=== PATIENT | male | born 1995 | race Caucasian/White ===

== ENCOUNTER 2024-01-07 18:17 | Emergency (ER) | payer BC | END 2024-01-07 20:14 | disposition home or self-care (01) | LOC: MW.ED 18:17 | DX: J18.9 Pneumonia, unspecified organism (principal); Z79.2 Long term (current) use of antibiotics; Z79.52 Long term (current) use of systemic steroids | CPT/HCPCS: 71045; 71045-26; 99284 ==

== ENCOUNTER 2024-01-07 23:00 | Emergency (ER) | payer BC ==
[2024-01-07] MEDS ORDERED: Sodium Chloride 0.9% 20 ML SDV IV PRN (23:08)
[2024-01-07] MEDS ORDERED: Sodium Chloride 0.9% 10 ML Syringe FLUSH PRN (23:08)
[2024-01-07] MEDS ORDERED: Sodium Chloride 0.9% 2.5 ML Syringe FLUSH PRN (23:08)
[2024-01-07 23:15] LABS: BASOPHILS ABSOLUTE AUTO 0.05 K/uL (0.00-0.20); BASOPHILS PERCENT AUTO 0.2 % (0.0-1.0); EOSINOPHILS ABSOLUTE AUTO 0.12 K/uL (0.00-0.45); EOSINOPHILS PERCENT AUTO 0.6 % (0.0-6.0); HEMATOCRIT 43.1 % (42.0-52.0); HEMOGLOBIN 15.2 g/dL (14.0-18.0); IMMATURE GRAN ABSOLUTE AUTO 0.09 K/uL (0.00-0.05); IMMATURE GRAN PERCENT AUTO 0.4 % (0.0-0.4); LYMPHOCYTES ABSOLUTE AUTO 3.03 K/uL (1.00-4.80); LYMPHOCYTES PERCENT AUTO 14.9 % (24.0-44.0); MEAN CORPUSCULAR HEMOGLOBIN 30.3 pg (28.0-32.0); MEAN CORPUSCULAR HGB CONC 35.3 g/dL (32.0-36.0); MEAN CORPUSCULAR VOLUME 85.9 fL (83.0-99.0); MEAN PLATELET VOLUME 9.1 fL (9.4-12.4); MONOCYTES ABSOLUTE AUTO 0.54 K/uL (0.00-0.80); MONOCYTES PERCENT AUTO 2.7 % (0.0-8.0); NEUTROPHILS ABSOLUTE AUTO 16.45 K/uL (1.80-7.70); NEUTROPHILS PERCENT AUTO 81.2 % (41.0-71.0); PLATELET COUNT,PLT 381 K/uL (150-400); RED BLOOD CELL COUNT 5.02 M/uL (4.52-5.90); WHITE BLOOD CELL COUNT,WBC 20.28 K/uL (3.9-11.3)
[2024-01-07 23:33] LABS: INR 1.07 (0.86-1.11)
[2024-01-07] MEDS: Acetaminophen 500 MG Tab PO ONE (23:55)
[2024-01-07 23:58] LABS: A/G RATIO 0.7 (0.9-1.6); ALANINE AMINOTRANSFERASE,ALT 486 IU/L (14-63); ALBUMIN 3.4 g/dL (3.4-5.0); ALKALINE PHOSPHATASE 72 U/L (46-116); BILIRUBIN TOTAL 0.4 mg/dL (0.2-1.0); BLOOD UREA NITROGEN,BUN 11 mg/dL (7.0-18.0); CALCIUM 8.8 mg/dL (8.5-10.1); CARBON DIOXIDE,CO2 28.7 mmol/L (21.0-32.0); CHLORIDE,CL 98 mmol/L (98-107); CREATININE 0.9 mg/dL (0.8-1.3); ETHANOL BLOOD MEDICAL <3 mg/dL; GLUCOSE RANDOM 156 mg/dL (74-106); LIPASE 30 U/L (16-77); POTASSIUM,K 3.8 mmol/L (3.5-5.1); PRO B-TYPE NATRIUR PEPT,BNPPRO 89 pg/mL (0-125); SODIUM,NA 137 mmol/L (136-148)
[2024-01-08] LABS: ESTIMATED GFR 118 mL/min (>60)
[2024-01-08] MEDS: Sodium Chloride 0.9% 1,000 ML IV ONE ×3 (00:02→01:30)
[2024-01-08 00:20] LABS: ASPARTATE AMNIOTRANSFERASE,AST 1649 IU/L (15-37)
[2024-01-08] MEDS: Albuterol/Ipratropium 3.0-0.5 MG/3 ML Neb Soln NEB ONE ×3 (00:35→12:23)
[2024-01-08 01:05] LABS: BASE EXCESS VENOUS 0.4 (-2.0-3.0); PH,VENOUS 7.38 (7.31-7.41)
[2024-01-08] MEDS: LORazepam 2 MG/ML SDV IVPUSH ONE (01:17)
[2024-01-08] MEDS: cefTRIAXone 2 GM in Sodium Chloride 0.9% 50 ML IV ONE (01:35)
[2024-01-08] MEDS: Midazolam 1 MG/ML 2 ML SDV IVPUSH ONE ×3 (01:44→11:47)
[2024-01-08 01:46] LABS: ACETAMINOPHEN <2.0 ug/mL; SALICYLATE 1.7 mg/dL (0.0-20.0)
[2024-01-08 02:00] LABS: APPEARANCE,URINE SLT CLOUDY; COLOR,URINE BROWN; GLUCOSE,URINE NEGATIVE (NEGATIVE); KETONES,URINE TRACE mg/dL (NEGATIVE); LEUKOCYTE ESTERASE,URINE TRACE (NEGATIVE); NITRITE,URINE POSITIVE (NEGATIVE); OCCULT BLOOD,URINE LARGE (NEGATIVE); PH,URINE 6.5 (5.0-8.0); PROTEIN,URINE >=300 mg/dL (NEGATIVE)
[2024-01-08 02:01] LABS: BILIRUBIN,URINE MODERATE (NEGATIVE)
[2024-01-08] MEDS ORDERED: Ketamine 500 mg/10 ML MDV IM PRN ×2 (02:07→04:19)
[2024-01-08 02:10] LABS: AMPHETAMINES SCREEN, URINE NEGATIVE (CUTOFF=500); BARBITURATE SCREEN,URINE NEGATIVE (CUTOFF=200); BENZODIAZEPINES SCREEN,URINE PRESUMPTIVE POSITIVE (CUTOFF=150); BUPRENORPHINE SCREEN,URINE NEGATIVE (CUTOFF=10); METHADONE SCREEN, URINE NEGATIVE (CUTOFF=200); METHAMPHETAMINES SCREEN, URINE NEGATIVE (CUTOFF=500); OXYCODONE SCREEN,URINE NEGATIVE (CUT0FF=100); PCP SCREEN,URINE NEGATIVE (CUTOFF=25); THC SCREEN,URINE 20 NG/ML PRESUMPTIVE POSITIVE (CUTOFF=50)
[2024-01-08 02:16] LABS: BACTERIA,URINE 3+ (NEGATIVE); EPITHELIAL CELLS,URINE RARE (NONE-FEW); FINE GRANULAR CASTS,URINE 0-1 (NEGATIVE); HYALINE CASTS,URINE 0-1 (0-2/LPF); MUCUS,URINE MODERATE (NONE-MOD)
[2024-01-08] MEDS: Doxycycline 100 MG in Sodium Chloride 0.9% 100 ML IV ONE (02:36)
[2024-01-08] MEDS: Iopamidol 755 MG/ML 500 ML Multipack Bottle IVPUSH ONE (04:12)
[2024-01-08] MEDS: Ketamine 500 mg/10 ML MDV IV PRN (04:13)
[2024-01-08] MEDS: methylPREDNISolone Sodium Succinate 125 MG/2 ML SDV IVPUSH ONE (04:34)
[2024-01-08 05:07] LABS: BASE EXCESS VENOUS -1.5 (-2.0-3.0); PH,VENOUS 7.38 (7.31-7.41)
[2024-01-08 05:10] LABS: BASOPHILS ABSOLUTE AUTO 0.05 K/uL (0.00-0.20); BASOPHILS PERCENT AUTO 0.3 % (0.0-1.0); EOSINOPHILS ABSOLUTE AUTO 0.12 K/uL (0.00-0.45); EOSINOPHILS PERCENT AUTO 0.6 % (0.0-6.0); HEMATOCRIT 41.9 % (42.0-52.0); HEMOGLOBIN 14.8 g/dL (14.0-18.0); IMMATURE GRAN PERCENT AUTO 0.5 % (0.0-0.4); LYMPHOCYTES ABSOLUTE AUTO 2.41 K/uL (1.00-4.80); LYMPHOCYTES PERCENT AUTO 12.7 % (24.0-44.0); MEAN CORPUSCULAR HEMOGLOBIN 30.5 pg (28.0-32.0); MEAN CORPUSCULAR HGB CONC 35.3 g/dL (32.0-36.0); MEAN CORPUSCULAR VOLUME 86.2 fL (83.0-99.0); MEAN PLATELET VOLUME 9.2 fL (9.4-12.4); MONOCYTES PERCENT AUTO 3.2 % (0.0-8.0); NEUTROPHILS ABSOLUTE AUTO 15.66 K/uL (1.80-7.70); NEUTROPHILS PERCENT AUTO 82.7 % (41.0-71.0); PLATELET COUNT,PLT 380 K/uL (150-400); RED BLOOD CELL COUNT 4.86 M/uL (4.52-5.90); WHITE BLOOD CELL COUNT,WBC 18.94 K/uL (3.9-11.3)
[2024-01-08 05:50] LABS: A/G RATIO 0.7 (0.9-1.6); ALANINE AMINOTRANSFERASE,ALT 534 IU/L (14-63); ALBUMIN 3.2 g/dL (3.4-5.0); ALKALINE PHOSPHATASE 70 U/L (46-116); BILIRUBIN TOTAL 0.5 mg/dL (0.2-1.0); BLOOD UREA NITROGEN,BUN 8 mg/dL (7.0-18.0); CALCIUM 8.1 mg/dL (8.5-10.1); CARBON DIOXIDE,CO2 24.5 mmol/L (21.0-32.0); CHLORIDE,CL 100 mmol/L (98-107); CREATININE 0.8 mg/dL (0.8-1.3); GLUCOSE RANDOM 127 mg/dL (74-106); POTASSIUM,K 4.1 mmol/L (3.5-5.1); PROTEIN TOTAL,TP 7.6 g/dL (6.4-8.2); SODIUM,NA 136 mmol/L (136-148)
[2024-01-08] MEDS: VANCOmycin 2 GM/400 ML 2 GM in Premix Bag 1 BAG IV ONE (05:51)
[2024-01-08 06:08] LABS: ASPARTATE AMNIOTRANSFERASE,AST 2065 IU/L (15-37); ESTIMATED GFR 122 mL/min (>60)
[2024-01-08] MEDS: Sodium Chloride 0.9% 1,000 ML IV SCH (07:24)
[2024-01-08] MEDS ORDERED: Midazolam 5 MG/ML SDV IVPUSH ONE (11:10)
[2024-01-08] MEDS: Rocuronium 100 MG/10 ML MDV IVPUSH ONE (11:30)
[2024-01-08] MEDS: Propofol 200 MG/20 ML SDV IVPUSH ONE ×4 (11:45→12:20)
[2024-01-08] MEDS: propofoL 1,000 MG/100 ML 100 ML IV SCH ×3 (11:45→13:04)
[2024-01-08] MEDS: Succinylcholine 200 MG/10 ML MDV IV PRN (11:47)
[2024-01-08] MEDS: fentaNYL/Normal Saline 2,500 MCG in Premix Bag 1 BAG IV PRN (12:03)
[2024-01-08] MEDS: Ketamine 500 mg/10 ML MDV IV ONE (12:32)
[2024-01-08] MEDS: Propofol 200 MG/20 ML SDV ONE (12:42)
[2024-01-08] MEDS: propofoL 1,000 MG/100 ML 100 ML ONE ×2 (12:43→13:05)
[2024-01-08] MEDS: fentaNYL/Normal Saline 250 ML ONE (12:44)
== END 2024-01-08 13:15 ==
LOC: MW.ED 23:00
DX: J96.01 Acute respiratory failure with hypoxia (principal); J18.9 Pneumonia, unspecified organism; M62.82 Rhabdomyolysis; D72.829 Elevated white blood cell count, unspecified; N30.01 Acute cystitis with hematuria; R79.89 Other specified abnormal findings of blood chemistry; I10 Essential (primary) hypertension; Z79.2 Long term (current) use of antibiotics; Z79.52 Long term (current) use of systemic steroids
CPT/HCPCS: 31500; 36415; 51702; 71045; 71275; 74177; 80053; 80143; 80179; 80202; 80305; 80307; 81001; 82550; 82803; 83605; 83690; 83880; 84484; 85025; 85379; 85610; 87040; 87428; 93005; 94640; 96361; 96365; 96366; 96367; 96375; 99284; 99291; A9270; J0330; J0696; J2060; J2250; J2704; J2919; J3372; J3490; J7030; Q9967; 93010; J7620-GY